=== PATIENT | female | born 1985 | race American Indian/Alaskan Native ===

== ENCOUNTER 2016-07-05 16:36 | Inpatient (IN) | payer OTHER ==
[2016-07-05] MEDS ORDERED: TUBERCULIN PPD 5 TU/0.1ML SYRINGE (IN PATIENT USE ONLY) ID ONE (17:10)
[2016-07-05 17:29] VITALS: BMI 36.1
[2016-07-05] MEDS ORDERED: DEXTROSE 5%-LACTATED RINGERS 1,000 ML IV ONE (17:43)
[2016-07-05 18:12] LABS: BASOPHIL 0.8 % (0-2.0); EOSINOPHIL 0.3 % (0-4.5); MCHC 34.4 g/dl (32.0-36.0); MEAN CELL VOLUME 90.2 fl (80-96); MEAN PLT VOLUME 10.8 fl (7.5-11.1); NEUTROPHILS 81.3 % (42.8-82.8); PLATELET COUNT 132 K/MM3 (134-434); RDW 14.2 % (11.6-15.6); WHITE BLOOD COUNT 8.8 K/mm3 (4.0-10.0)
[2016-07-05 18:25] LABS: CALCIUM 8.4 mg/dL (8.5-10.1); CREATININE 0.6 mg/dL (0.55-1.02)
[2016-07-05 18:31] LABS: INR 0.98 (0.82-1.09); PROTHROMBIN TIME (PATIENT) 10.8 SEC (9.98-11.88)
[2016-07-05 18:33] LABS: ACTIVATED PTT 28.6 SECONDS (26.9-34.4)
[2016-07-05] MEDS ORDERED: D5W-LR W/ 20 UNITS OXYTOCIN 1,000 ML IV ONE (18:55)
[2016-07-05 21:27] LABS: URINE APPEARANCE CLEAR; URINE BILIRUBIN NEGATIVE (NEGATIVE); URINE COLOR YELLOW; URINE GLUCOSE (UA) NEGATIVE (NEGATIVE); URINE KETONE NEGATIVE (NEGATIVE); URINE LEUK ESTERASE NEGATIVE (NEGATIVE); URINE NITRITE NEGATIVE (NEGATIVE); URINE UROBILINOGEN NEGATIVE E.U./dl (0.2-1.0)
[2016-07-05 21:35] LABS: URINE BLOOD 1+ (NEGATIVE); URINE PROTEIN 2+ (NEGATIVE)
[2016-07-05 21:38] LABS: URINE HYALINE CAST 2 /lpf; URINE MUCUS RARE; URINE RBC <1 /hpf (0-3); URINE WBC 1 /hpf (3-5)
[2016-07-05] MEDS ORDERED: oxyCODONE HCL 5 MG TABLET PO PRN (21:46)
[2016-07-05] MEDS ORDERED: WITCH HAZEL 50% (TUCKS) 40 PAD/JAR PAD TP PRN (21:46)
[2016-07-05] MEDS ORDERED: METHYLERGONOVINE MALEATE 0.2 MG/1 ML AMP IM PRN (21:46)
[2016-07-05] MEDS ORDERED: BENZOCAINE 20% 57 GM BOTTLE TP PRN (21:46)
[2016-07-05] MEDS ORDERED: BENZOCAINE 28 GM HEMORRHOIDAL OINTMENT TP PRN (21:46)
[2016-07-05] MEDS ORDERED: BISACODYL 10 MG SUPP.RECT RC PRN (21:46)
[2016-07-05] MEDS ORDERED: D5W-LR W/ 20 UNITS OXYTOCIN 1,000 ML IV SCH (22:00)
--- NOTE | 2016-07-05 22:02 | HP ---
Past Medical History - Primary Care Physician PCP:: Antony Ross - Admission Chief Complaint: 38 weeks, previous c/s labor, request of History of Present Illness: 31 g6 p 3 0 2 3 edc by sono 07/13/16 c/o contraction, no rom, no bleeding , cx 5 cm 100 vx 0 bulging membrane, fhr cat 1 regular contraction History Source: Patient Limitations to Obtaining History: No Limitations - Past Medical History ...: 6 ...Para: 3 ...Term: 3 ...: 0 ...Spon : 1 ...Induced : 1 ...Multiple Gestation: 0 ...LMP: 10/07/15 ...EDC by Sono: 07/13/16 - Past Surgical History Past Surgical History: Yes: Hx Myomectomy: No Hx Transabdominal Cerclage: No - Smoking History Smoking history: Never smoked Have you smoked in the past 12 months: No - Alcohol/Substance Use Hx Alcohol Use: No History of Substance Use: reports: None - Social History Usual Living Arrangement: Yes: With Spouse History of Recent Travel: No Home Medications - Allergies Allergies/Adverse Reactions: Allergies Allergy/AdvReac Type Severity Reaction Status Date / Time No Known Allergies Allergy Verified 07/05/16 17:30 - Home Medications Home Medications: Ambulatory Orders Vit No.130/Iron/FA [ Vitamins] 1 each PO DAILY 07/05/16 Review of Systems - Review of Systems Constitutional: reports: No Symptoms Eyes: reports: No Symptoms HENT: reports: No Symptoms Neck: reports: No Symptoms Cardiovascular: reports: No Symptoms Respiratory: reports: No Symptoms Gastrointestinal: reports: No Symptoms Genitourinary: reports: No Symptoms Breasts: reports: No Symptoms Reported Musculoskeletal: reports: No Symptoms Integumentary: reports: No Symptoms Neurological: reports: No Symptoms Endocrine: reports: No Symptoms Hematology/Lymphatic: reports: No Symptoms Psychiatric: reports: No Symptoms Physical Exam - Maternity Vital Signs: Vital Signs Temperature 98.0 F 07/05/16 19:45 Pulse Rate 105 H 07/05/16 19:45 Respiratory Rate 18 07/05/16 19:45 Blood Pressure 121/60 07/05/16 19:45 O2 Sat by Pulse Oximetry (%) 98 07/05/16 19:00 Constitutional: Yes: Well Nourished, No Distress, Calm Eyes: Yes: WNL, Conjunctiva Clear, EOM Intact HENT: Yes: WNL, Atraumatic, Normocephalic Neck: Yes: WNL, Supple, Trachea Midline Cardiovascular: Yes: WNL, Regular Rate and Rhythm Breast(s): Yes: WNL - Abdominal Exam/OB Fundal Height: 40 Number of Fetuses: Single Presentation: Vertex Regularity: Regular Intensity: Strong Monitor Mode: External Heart Rate Location: [facility] Category: I Accelerations: Uniform Decelerations: None - Vaginal Exam/OB Vaginal Bleediing: No Speculum Exam: No Dilatation (cm): 5 cm Effacement (%): 100 Amniotic Membrane Status: Bulging Presentation: Vertex/Position Station: -1 - Physical Exam Extremities: Yes: WNL Edema: LLE: 1+, RLE: 1+ Deep Tendon Reflex Grade: Normal +2 Psychiatric: Yes: Alert - Labs Lab Results: CBC, BMP 07/05/16 17:30 07/05/16 17:30 Hemorrhage Risk Assessment - Risk Factors Medium Risk Factors: Yes: Prior , uterine surgery,or multiple laparotomies, None High Risk Factors: Yes: None Risk Score: 2 Risk Level: High Risk Problem List - Problems (1) with 38 completed weeks gestation Code(s): Z3A.38 - 38 WEEKS GESTATION OF (2) Labor established Code(s): REK3682 - (3) Previous delivery affecting , antepartum Code(s): O34.21 - MATERNAL CARE FOR SCAR FROM PREVIOUS * DO NOT USE * Assessment/Plan admit for , rba discussed, heart monitoring
[2016-07-05] MEDS: FERROUS SO4 325 MG TABLET (FP) PO SCH (23:57)
[2016-07-06] MEDS: IBUPROFEN 600 MG TABLET (FP) PO PRN ×2 (01:59→21:35)
[2016-07-06] MEDS: ACETAMINOPHEN 325 MG TABLET (FP) PO PRN ×2 (02:02→21:36)
--- NOTE | 2016-07-06 07:03 | PN ---
Progress Note (short form) - Note Progress Note: ppd 1 doing well, voids ok, no active vaginal bleeding CBC, BMP 07/05/16 17:30 07/05/16 17:30 Last Vital Signs Temp Pulse Resp BP Pulse Ox 97.5 F L 90 18 114/75 98 07/06/16 06:00 07/06/16 06:00 07/06/16 06:00 07/06/16 06:00 07/05/16 19:00 abdomen soft, non tender, no cva uterus firm, non tender lochia mild perineum clean no calf tenderness plan ambulate, cbc Problem List - Problems (1) with 38 completed weeks gestation Code(s): Z3A.38 - 38 WEEKS GESTATION OF (2) Labor established Code(s): HEV9816 - (3) Previous delivery affecting , antepartum Code(s): O34.21 - MATERNAL CARE FOR SCAR FROM PREVIOUS * DO NOT USE *
[2016-07-06 07:40] LABS: MCHC 34.6 g/dl (32.0-36.0); MEAN CELL VOLUME 89.6 fl (80-96); MEAN PLT VOLUME 10.6 fl (7.5-11.1); PLATELET COUNT 115 K/MM3 (134-434); RDW 14.4 % (11.6-15.6); WHITE BLOOD COUNT 11.5 K/mm3 (4.0-10.0)
[2016-07-06] MEDS: PRENATAL VITAMINS W/ FOLIC ACID TABLET (FP) PO SCH (09:12)
[2016-07-06] MEDS: FERROUS SO4 325 MG TABLET (FP) PO SCH ×2 (09:12→21:14)
[2016-07-06 09:45] LABS: PLATELET ESTIMATE SLT DECREASED (NORMAL)
[2016-07-06] MEDS ORDERED: INFLUENZA VACCINE 60 MCG/0.5 ML (P/F DISP.SYRIN 16-17) IM ONE (10:00)
[2016-07-06] MEDS ORDERED: INFLUENZA VACCINE 45 MCG/0.5 ML (MDV 16-17) IM ONE (10:00)
[2016-07-06] MEDS ORDERED: DIPHTH,PERTUSS(ACELL),TET 0.5 ML DISP.SYRIN IM ONE (10:00)
[2016-07-06] MEDS ORDERED: SENNOSIDES/DOCUSATE COMBO (SENNA PLUS) TABLET (UD) PO PRN (22:00)
[2016-07-07] MEDS: PRENATAL VITAMINS W/ FOLIC ACID TABLET (FP) PO SCH (09:05)
[2016-07-07] MEDS: FERROUS SO4 325 MG TABLET (FP) PO SCH (09:05)
--- NOTE | 2016-07-07 09:07 | PN ---
Post Progress Note - Subjective Subjective: no complains Post Day: 2 Type of Delivery: Vital Signs: Vital Signs Temperature 97.9 F 07/07/16 05:17 Pulse Rate 88 07/07/16 05:17 Respiratory Rate 20 07/07/16 05:17 Blood Pressure 112/67 07/07/16 05:17 O2 Sat by Pulse Oximetry (%) 98 07/05/16 19:00 Breast Exam: Yes: Soft, Other (BF). No: Engorged Uterus: Yes: Fundus Firm, Fundus below umbilicus Lochia: Yes: Rubra Lochia, amount: Moderate Extremities: Yes: Calves non-tender Perineum: Yes: Intact Activity: Ambulating - Labs Labs: CBC WBC 11.5 K/mm3 (4.0-10.0) H D 07/06/16 06:35 RBC 3.20 M/mm3 (3.60-5.2) L D 07/06/16 06:35 Hgb 9.9 GM/dL (10.7-15.3) L D 07/06/16 06:35 Hct 28.6 % (32.4-45.2) L D 07/06/16 06:35 MCV 89.6 fl (80-96) 07/06/16 06:35 MCHC 34.6 g/dl (32.0-36.0) 07/06/16 06:35 RDW 14.4 % (11.6-15.6) 07/06/16 06:35 Plt Count 115 K/MM3 (134-434) L 07/06/16 06:35 MPV 10.6 fl (7.5-11.1) 07/06/16 06:35 Neutrophils % 63.0 % (42.8-82.8) D 07/06/16 06:35 Lymphocytes % 22.0 % (8-40) D 07/06/16 06:35 Monocytes % 6.0 % (3.8-10.2) 07/06/16 06:35 Eosinophils % 1.0 % (0-4.5) D 07/06/16 06:35 Basophils % Cardiac Care Nurse 07/06/16 06:35 Band Neutrophils 1.0 % (0-10) 07/06/16 06:35 Differential Comment Manual diff done 07/06/16 06:35 Platelet Estimate Slt decreased (NORMAL) 07/06/16 06:35 Assessment/Plan stable. discharge today
[2016-07-07 09:46] VITALS: BP 131/77; PULSE 91; TEMP 97.8
== END 2016-07-07 11:00 | disposition home or self-care (01) | DRG 560 ==
LOC: JDEL 16:36 → JLDR 17:00 → J3W 20:15
PROVIDERS: ADMIT Obstetrics & Gynecology; ATTEND Obstetrics & Gynecology
PROC: 10E0XZZ Delivery of Products of Conception, External Approach (ICD-10-PCS; principal; 2016-07-05)
DX: O34.219 Maternal care for unspecified type scar from previous cesarean delivery (principal); Z3A.38 38 weeks gestation of pregnancy; Z37.0 Single live birth
CPT/HCPCS: 36415; 59409; 80048; 81003; 81015; 85025; 85610; 85730; 86593; 86850; 86900; 86901; 90686; G0008

== ENCOUNTER 2017-02-05 08:55 | Emergency (ER) | payer OTHER ==
[2017-02-05 09:15] VITALS: BP 152/93; PULSE 93; TEMP 98.2; BMI 35.4
--- NOTE | 2017-02-05 10:18 | PDOC ---
History of Present Illness <Saman Dailey - Last Filed: 02/05/17 12:11> - General History Source: Patient Exam Limitations: No Limitations - History of Present Illness Initial Comments: 02/05/17 12:23 The patient is a 32 year old female, with no significant past medical history who presents to the emergency department with R thumb pain for the past 2 days. Patient reports throbbing pain, radiating to her R arm and R axilla. Patient reports washing dishes a few days ago and since then has been experiencing this pain. Patient denies any sharp objects, recent trauma or injury to the area. Patient reports clipping her thumb nail several days ago. When clipping her nail , patient noted yellow drainage with minimal relief. Patient reports pain returned and reports to the ED for further evaluation. Patient denies any recent illnesses or sick contacts. <Cande Schreiber - Last Filed: 02/05/17 12:23> - General Chief Complaint: Pain Stated Complaint: SWOLLEN RT THUMB Time Seen by Provider: 02/05/17 09:41 Past History - Past Medical History Asthma: No Cancer: No Cardiac Disorders: No Diabetes: No HTN: No Seizures: No Thyroid Disease: No - Surgical History Appendectomy: Yes - Suicide/Smoking/Psychosocial Hx Smoking History: Never smoked Have you smoked in the past 12 months: No Information on smoking cessation initiated: No Hx Alcohol Use: No Drug/Substance Use Hx: No Substance Use Type: None Hx Substance Use Treatment: No <Asim,Saman - Last Filed: 02/05/17 12:11> <Cande Schreiber - Last Filed: 02/05/17 12:23> - Past Medical History Allergies/Adverse Reactions: Allergies Allergy/AdvReac Type Severity Reaction Status Date / Time No Known Allergies Allergy Verified 02/05/17 09:14 Home Medications: Ambulatory Orders Vit No.130/Iron/FA [ Vitamins] 1 each PO DAILY 07/05/16 Cephalexin Monohydrate [Keflex -] 500 mg PO Q6H #40 capsule 02/05/17 Review of Systems - Review of Systems Able to Perform ROS?: Yes Comments:: 02/05/17 12:23 CONSTITUTIONAL: +chills Absent: fever, no fatigue MUSCULOSKELETAL: +R thumb pain. Absent: back pain, no arthralgia, no myalgia SKIN: Absent: rash NEURO: Absent: headache <AbdoulCande chambers - Last Filed: 02/05/17 12:23> *Physical Exam - Vital Signs Last Vital Signs Temp Pulse Resp BP Pulse Ox 98.2 F 93 H 18 152/93 100 02/05/17 09:13 02/05/17 09:13 02/05/17 09:13 02/05/17 09:13 02/05/17 09:13 <Saman Dailey - Last Filed: 02/05/17 12:11> - Vital Signs Last Vital Signs Temp Pulse Resp BP Pulse Ox 98.2 F 93 H 18 152/93 100 02/05/17 09:13 02/05/17 09:13 02/05/17 09:13 02/05/17 09:13 02/05/17 09:13 - Physical Exam Comments: 02/05/17 12:23 GENERAL: The patient is awake, alert, and fully oriented, Nontoxic - in no acute distress. EXTREMITIES: tenderness to R thumb on palpation, mild edema, with a hypopigmented spot on the tip of the thumb where the nail bed is, no notable fluid collection, no fb noted. no erythema, warmth appreciated. <AbdoulCande - Last Filed: 02/05/17 12:23> ED Treatment Course - Medications Given in the ED: ED Medications Discontinued Medications Generic Name Dose Route Start Last Admin Trade Name Kamini PRN Reason Stop Dose Admin Lidocaine HCl 5 ml 02/05/17 10:58 02/05/17 11:01 Xylocaine 1% SQ 02/05/17 10:59 5 ml ONCE ONE Administration <AbdoulCande - Last Filed: 02/05/17 12:23> Medical Decision Making - Medical Decision Making 02/05/17 10:05 32y F presents with R thumb pain for the past 4 days that started when she was washing dishes, there was no trauma, pt does endorse that she was trimmed hernail and saw some dischage from the thumb. on exam the pts thumb appears mildly swollen, but non erythemadous, there is a focal hypopigmented point at the vertex of the thumb at the nail. will obtrain xrya to r/o fb possible mild felon? will do a needle aspiration, if +dicharge, will I&D A portion of this note was documented by scribe services under my direction. I have reviewed the details of the note, within reason, and agree with the documentation with the following case summary and management plan written by me 02/05/17 12:08 no fb on xray attemped drainaged of suspect early felon, a couple of drops of purulent discharge was expressed, will give pt abx and woun was dressed with bacitrcin will have pt continue to observe, if worse or red/fevers or signs of infetion will return for further management will have pt fuw ith pmd I discussed the physical exam findings, ancillary test results and final diagnoses with the patient. I answered all of the patient's questions. The patient was satisfied with the care received and felt comfortable with the discharge plan and treatment plan. The patient will call their primary care physician within 24 hours to arrange follow-up and will return to the Emergency Department with any new, persistent or worsening symptoms. <Saman Dailey - Last Filed: 02/05/17 12:11> *DC/Admit/Observation/Transfer - Discharge Dispostion Admit: No <Saman Dailey - Last Filed: 02/05/17 12:11> - Attestations Scribe Attestion: 02/05/17 12:23 Documentation prepared by Cande Schreiber, acting as medical office worker for Saman Dailey MD <Cande Schreiber - Last Filed: 02/05/17 12:23> Diagnosis at time of Disposition: Bashir of finger - Discharge Dispostion Disposition: HOME Condition at time of disposition: Improved - Prescriptions Prescriptions: Cephalexin Monohydrate [Keflex -] 500 mg PO Q6H #40 capsule - Referrals Referrals: Collins Patton MD [Primary Care Provider] - - Patient Instructions Printed Discharge Instructions: DI for Bashir Additional Instructions: Return to the emergency department immediately with ANY new, persistent or worsening symptoms including fever/chlls, increased pain, swelling, redness. takethe antibiotics as prescribed. You MUST call and follow up with your doctor tomorrow for further evaluation of your symptoms. Results were discussed with you. Please make sure your doctor reviews the results of your emergency evaluation.
[2017-02-05] MEDS ORDERED: LIDOCAINE HCL/PF 1% SDV 5ML VIAL ONE (10:58)
[2017-02-05] MEDS ORDERED: LIDOCAINE HCL 1%, 10 MG/ML (50 mL VIAL) SQ ONE (10:58)
== END 2017-02-05 13:33 | disposition home or self-care (01) ==
LOC: JER 08:55 → JERFT 08:55 → JER 13:33
PROC: 0H9FXZZ Drainage of Right Hand Skin, External Approach (ICD-10-PCS; principal; 2017-02-05)
DX: L03.011 Cellulitis of right finger (principal)
CPT/HCPCS: 73140-TC-RT; 99282-25